=== PATIENT | female | born 1945 | race Caucasian/White ===

== ENCOUNTER → 2023-10-30 12:51 | Outpatient (REF) | payer OTHER, SELFPAY | LOC: WDC 12:51 | PROVIDERS: ATTENDING PHYSICIAN Internal Medicine | DX: Z12.31 Encounter for screening mammogram for malignant neoplasm of breast (principal) | CPT/HCPCS: 77063; 77067 ==

== ENCOUNTER → 2024-06-22 10:09 | Outpatient (REF) | payer OTHER, SELFPAY ==
[2024-06-22 12:00] LABS: Urine Albumin Negative (Neg - Trace); Urine Bilirubin Negative (Negative); Urine Character Clear (Clear); Urine Color Yellow; Urine Glucose Negative (Negative); Urine Ketone Negative (Negative); Urine Leukocyte 1+ (Negative); Urine Nitrite Negative (Negative); Urine Occult Blood Negative (Negative); Urine Specific Gravity 1.015 (<1.030); Urine Urobilinogen Negative (Neg - 1+)
[2024-06-22 12:21] LABS: Urine Red Blood Cell 0-2 /HPF (0-2)
[2024-06-22 12:22] LABS: Urine Bacteria Many (Negative); Urine White Cell 50-60 /HPF (0-5)
[2024-06-22 12:58] LABS: ALT (SGPT) 23 U/L (0-35); AST (SGOT) 26 U/L (14-36); Albumin 4.1 g/dl (3.5-5.0); Alkaline Phosphatase 94 U/L (38-126); Blood Urea Nitrogen 17 mg/dl (7-17); Calcium 9.1 mg/dl (8.4-10.2); Carbon Dioxide 23 mmol/L (22-30); Chloride 104 mmol/L (98-107); Glucose 81 mg/dl (70-99); HDL Cholesterol 65 mg/dl; LDL Cholesterol, Calculated 126 mg/dl; Potassium 4.7 mmol/L (3.5-5.1); Sodium 143 mmol/L (135-145); Total Bilirubin 0.6 mg/dl (0.2-1.3); Total Cholesterol 219 mg/dl (50-199); Total Protein 6.7 g/dl (6.3-8.2); Triglyceride 140 mg/dl (10-149); Very Low Density Lipoprotein 28 mg/dl (0-30); eGFR > 60.00
[2024-06-22 14:15] LABS: % Basophils 0.5 % (0-2); % Eosinophils 1.4 % (0-6); % Immature Granulocytes 0.8 % (0-0.5); % Monocytes 7.5 % (1.7-9.3); % Neutrophils 67.8 % (42.2-75.2); Absolute Eosinophils 0.1 10^3/uL (0-0.7); Absolute Immature Granulocytes 0.1 10^3/uL (0-0.05); Absolute Lymphocytes 1.9 10^3/uL (1.2-3.4); Absolute Monocytes 0.7 10^3/uL (0.1-0.6); Absolute Neutrophils 5.9 10^3/uL (1.4-6.5); Hemoglobin 15.8 g/dL (12.0-16.0); Mean Corp Hgb Conc. 33.6 g/dL (33.0-37.0); Mean Corpuscular Hgb 28.6 pg (27.0-31.0); Mean Corpuscular Volume 85.1 fL (81.0-99.0); Mean Platelet Volume 10.4 fL (7.4-10.4); Nucleated Red Blood Cells % 0 %; Platelet Count 295 10^3/uL (130-400); Red Blood Cell Count 5.52 10^6/uL (4.20-5.40); White Blood Cell Count 8.7 10^3/uL (4.8-10.8)
[2024-06-22 15:15] LABS: Cortisol, Random 5.4 ug/dl
[2024-06-22 15:41] LABS: Vitamin D, 25-OH*** 44.2 ng/mL (30-80)
[2024-06-22 15:55] LABS: TSH Reflex To Free T4 1.75 uIU/ml (0.47-4.68)
[2024-06-24 00:11] LABS: C-Peptide 3.3 ng/mL (0.5-3.3); Insulin, Random 19 uIU/mL
[2024-06-24 02:32] LABS: IGF-1 Z Score Calculation 1.5; Insulin-like Growth Factor I 178 ng/mL (18-200)
== END ==
LOC: OLABPV 10:09
PROVIDERS: ATTENDING PHYSICIAN Internal Medicine Geriatric Medicine; FAMILY PHYSICIAN Nurse Practitioner Family
DX: Z76.89 Persons encountering health services in other specified circumstances (principal); M54.41 Lumbago with sciatica, right side; R00.2 Palpitations; K21.9 Gastro-esophageal reflux disease without esophagitis; N39.0 Urinary tract infection, site not specified; I10 Essential (primary) hypertension; R05.3 Chronic cough; Z01.89 Encounter for other specified special examinations; Z13.89 Encounter for screening for other disorder
CPT/HCPCS: 36415; 80053; 80061; 81003; 81015; 82306; 82533; 83525; 84305; 84443; 84681; 85025; 87077; 87086; 87186

== ENCOUNTER → 2024-07-07 18:25 | Outpatient (REF) | payer OTHER, SELFPAY ==
[2024-07-07 19:35] LABS: Urine Albumin Negative (Neg - Trace); Urine Bilirubin Negative (Negative); Urine Character Clear (Clear); Urine Color Yellow; Urine Glucose Negative (Negative); Urine Ketone Negative (Negative); Urine Leukocyte Trace (Negative); Urine Nitrite Positive (Negative); Urine Occult Blood Negative (Negative); Urine Urobilinogen Negative (Neg - 1+)
[2024-07-07 19:43] LABS: Urine Bacteria Many (Negative); Urine Red Blood Cell 0-2 /HPF (0-2); Urine Squamous Cell 0-2 /LPF (Few); Urine White Cell 26-30 /HPF (0-5)
== END ==
LOC: OLABPV 18:25
PROVIDERS: ATTENDING PHYSICIAN Internal Medicine Geriatric Medicine
DX: N39.0 Urinary tract infection, site not specified (principal)
CPT/HCPCS: 36415; 81003; 81015; 87077; 87086

== ENCOUNTER → 2024-08-02 11:40 | Outpatient (REF) | payer OTHER, SELFPAY ==
[2024-08-02 16:36] LABS: Urine Albumin Negative (Neg - Trace); Urine Bilirubin Negative (Negative); Urine Character Clear (Clear); Urine Color Yellow; Urine Glucose Negative (Negative); Urine Ketone Negative (Negative); Urine Leukocyte Negative (Negative); Urine Nitrite Negative (Negative); Urine Occult Blood Negative (Negative); Urine Specific Gravity 1.015 (<1.030); Urine Urobilinogen Negative (Neg - 1+)
== END ==
LOC: OLABPV 11:40
PROVIDERS: ATTENDING PHYSICIAN Nurse Practitioner Family
DX: N39.0 Urinary tract infection, site not specified (principal)
CPT/HCPCS: 81003

== ENCOUNTER → 2024-08-03 10:23 | Outpatient (REF) | payer OTHER, SELFPAY ==
[2024-08-03 11:25] LABS: ALT (SGPT) 23 U/L (0-35); AST (SGOT) 25 U/L (14-36); Albumin 4.1 g/dl (3.5-5.0); Alkaline Phosphatase 83 U/L (38-126); Blood Urea Nitrogen 15 mg/dl (7-17); Carbon Dioxide 25 mmol/L (22-30); Chloride 105 mmol/L (98-107); Glucose 94 mg/dl (70-99); Potassium 4.6 mmol/L (3.5-5.1); Sodium 143 mmol/L (135-145); Total Bilirubin 0.7 mg/dl (0.2-1.3); Total Protein 6.8 g/dl (6.3-8.2); eGFR > 60.00
[2024-08-05 06:09] LABS: Insulin, Random 15 uIU/mL
[2024-08-05 06:10] LABS: C-Peptide 3.2 ng/mL (0.5-3.3)
[2024-08-05 16:30] LABS: IGF-1 Z Score Calculation 1.5; Insulin-like Growth Factor I 177 ng/mL (18-193)
== END ==
LOC: OLABPV 10:23
PROVIDERS: ATTENDING PHYSICIAN Internal Medicine Geriatric Medicine
DX: Z76.89 Persons encountering health services in other specified circumstances (principal); R26.9 Unspecified abnormalities of gait and mobility; I10 Essential (primary) hypertension; K21.9 Gastro-esophageal reflux disease without esophagitis; E55.9 Vitamin D deficiency, unspecified; E16.2 Hypoglycemia, unspecified
CPT/HCPCS: 36415; 80053; 82533; 83525; 84305; 84681

== ENCOUNTER → 2024-08-09 13:01 | Outpatient (REF) | payer OTHER, SELFPAY | LOC: RCS 13:01 | PROVIDERS: ATTENDING PHYSICIAN Nurse Practitioner Family | DX: R00.2 Palpitations (principal) | CPT/HCPCS: 93005 ==

== ENCOUNTER → 2024-08-11 13:21 | Outpatient (REF) | payer OTHER, SELFPAY | LOC: RCS 13:21 | PROVIDERS: ATTENDING PHYSICIAN Nurse Practitioner Family; FAMILY PHYSICIAN Internal Medicine Geriatric Medicine | DX: R94.31 Abnormal electrocardiogram [ECG] [EKG] (principal) | CPT/HCPCS: 93005 ==

== ENCOUNTER → 2024-08-16 13:08 | Outpatient (REF) | payer OTHER, SELFPAY | LOC: RCS 13:08 | PROVIDERS: ATTENDING PHYSICIAN Nurse Practitioner Family | DX: R94.31 Abnormal electrocardiogram [ECG] [EKG] (principal) | CPT/HCPCS: 93225; 93226 ==

== ENCOUNTER → 2024-08-19 11:17 | Outpatient (REF) | payer OTHER, SELFPAY | LOC: HWRAD 11:17 | PROVIDERS: ATTENDING PHYSICIAN Internal Medicine Geriatric Medicine | DX: N39.0 Urinary tract infection, site not specified (principal) | CPT/HCPCS: 76770 ==

== ENCOUNTER → 2024-08-28 11:19 | Outpatient (REF) | payer OTHER, SELFPAY | LOC: RCS 11:19 | PROVIDERS: ATTENDING PHYSICIAN Nurse Practitioner Family; FAMILY PHYSICIAN Internal Medicine Geriatric Medicine | DX: R94.31 Abnormal electrocardiogram [ECG] [EKG] (principal) | CPT/HCPCS: 93306 ==

== ENCOUNTER → 2024-10-06 09:10 | Outpatient (REF) | payer OTHER, SELFPAY | LOC: RCS 09:10 | PROVIDERS: ATTENDING PHYSICIAN Internal Medicine Geriatric Medicine | DX: K21.9 Gastro-esophageal reflux disease without esophagitis (principal); I10 Essential (primary) hypertension; R26.9 Unspecified abnormalities of gait and mobility; E55.9 Vitamin D deficiency, unspecified; M25.562 Pain in left knee; M76.32 Iliotibial band syndrome, left leg; R00.2 Palpitations; R94.31 Abnormal electrocardiogram [ECG] [EKG]; Z13.89 Encounter for screening for other disorder; R61 Generalized hyperhidrosis; I49.1 Atrial premature depolarization | CPT/HCPCS: 93017; 93350 ==

== ENCOUNTER → 2024-11-05 08:00 | Outpatient (REF) | payer OTHER, SELFPAY | LOC: HWRCS 08:00 | PROVIDERS: ATTENDING PHYSICIAN Internal Medicine; FAMILY PHYSICIAN Internal Medicine Geriatric Medicine | DX: R00.2 Palpitations (principal); R06.09 Other forms of dyspnea; I49.1 Atrial premature depolarization; I47.10 Supraventricular tachycardia, unspecified; R94.39 Abnormal result of other cardiovascular function study | CPT/HCPCS: 78452; 93017; A9500; J2785 ==

== ENCOUNTER → 2024-11-23 14:13 | Outpatient (REF) | payer OTHER, SELFPAY | LOC: WDC 14:13 | PROVIDERS: ATTENDING PHYSICIAN Internal Medicine Geriatric Medicine | DX: Z12.31 Encounter for screening mammogram for malignant neoplasm of breast (principal) | CPT/HCPCS: 77063; 77067 ==

== ENCOUNTER 2024-11-26 10:31 | Day surgery (SDC) | payer OTHER, SELFPAY ==
[2024-11-19 10:32] VITALS: BMI 36.7
[2024-11-26] VITALS (8 sets, daily range): BP systolic 136–166; BP diastolic 72–112
--- NOTE | 2024-11-26 14:59 | W.PN.UPDATE ---
Update Note
Progress Note Update
CTSP re: fall. She was in the bathroom and had difficulty standing up from the toilet, lost her balance and fell backward, per pt. No witnesses. She struggled to get up and did. She now has lateral right side torso pain on palpation, skin is
reddened but no bruising or lacerations, skin is intact. She is able to take deep breaths without pain and moves in the bed without pain. She denies hitting her head at all, denies lh/dizziness/chest pain/palps/dypsnea.
Will get rib films with PA chest
Dr. Mitchell aware.
--- NOTE | 2024-11-26 16:21 | FALL ---
Description of Fall:Pt ambulated with RN without difficulty to bathroom from the stretcher in room at 1455. pt sitting on toilet , pt given privacy and RN told pt she would be right back. Pt got up off toilet and stated she had difficulty getting up
and fell to the back of toilet sitting on toilet. Pt was already back in the stretcher sitting up when RN returned to room approximately 2 minutes later from getting warm blankets. Pt stating she fell to the back of the toilet and hit her right
lower back. Pt denied hitting anything else.
Injuries Noted:reddended area noted on right lower back
Action Taken:Dr Mitchell and Nadine Mesa aware and in to see patient. Pt taken to xray as ordered. Ice offered to pt on return from xray and pain medicine. Pt denied any pain on return from xray. Right low back pain initially was 6/10 pt pain free
after returning from xray. Family at bedside and updated by Dr Mitchell and RN
Name of Provider Notified: Nadine Mesa FERMENTER WINE, Dr Kendal Mitchell
--- NOTE | 2024-11-26 19:35 | ITS.CL.PN ---
Counter Person - Procedure Note
Procedure
Procedure Note:
CARDIAC CATHETERIZATION REPORT
Date of Procedure: 11/26/2024
Referring: Dr. Ankit Green MD, PhD
Indication: atypical angina, positive cardiac stress test
PROCEDURE(S)
1. left heart catheterization
2. coronary angiography
ACCESS: 6F right radial artery (closure: radial band)
CATHETERS
1. 6F JR4
2. 6F JL3.5
MODERATE SEDATION: 25 minutes of moderate sedation was utilized. An independent medical legal investigator was present to assist with and help manage the patient's level of consciousness and physiologic status.
ULTRASOUND GUIDED VASCULAR ACCESS (right radial artery): Ultrasound was utilized for vascular access. The vessel was visualized under ultrasound and noted to be patent. An image of the vessel was stored permanently in the patient's medical record.
Under direct ultrasound guidance, vascular access was obtained using a modified Seldinger technique and a 6 Urdu sheath was placed.
HEMODYNAMIC DATA
LV 154/13 (EDP 20) mmHg
AO 149/87 (mean 115) mmHg
CORONARY ANGIOGRAPHY
Dominance: Right
LM: Large, normal
LAD: Large vessel giving rise to a small D1 and moderate caliber D2. There are trivial luminal irregularities.
LCx: Large vessel giving rise to a moderate caliber OM1 and small OM 2. There are trivial luminal irregularities
RCA: Large vessel giving rise to a moderate caliber RPDA and large LPL system with multiple branches. There are trivial luminal irregularities.
RADIATION: dose 300 mGy; DAP 20.8 Gy*cm2; fluoroscopy time 7.7 min
CONCLUSIONS
1. normal coronary arteries and a right dominant system
2. mildly elevated LV filling pressure and no aortic stenosis
RECOMMENDATIONS
1. expectant management after cardiac catheterization via right radial approach
2. primary prevention of coronary artery disease
3. workup and treatment possible ANOCA
Copy to: Dr. Ankit Green MD, PhD (cotton ball machine tender); Dr. James Phillips MD (PCP)
Signed: Mitchell Mitchell MD, PhD
== END 2024-11-26 17:45 | disposition home or self-care (01) ==
LOC: CATH 10:31
PROVIDERS: ATTENDING PHYSICIAN Internal Medicine Cardiovascular Disease; FAMILY PHYSICIAN Internal Medicine Geriatric Medicine; OTHER PHYSICIAN Internal Medicine
DX: R06.09 Other forms of dyspnea (principal); R94.39 Abnormal result of other cardiovascular function study; I10 Essential (primary) hypertension; E66.9 Obesity, unspecified; Z68.36 Body mass index [BMI] 36.0-36.9, adult; M19.90 Unspecified osteoarthritis, unspecified site; G47.33 Obstructive sleep apnea (adult) (pediatric); K21.9 Gastro-esophageal reflux disease without esophagitis; F32.A Depression, unspecified; Z79.82 Long term (current) use of aspirin; Z82.3 Family history of stroke
CPT/HCPCS: 99152; 99153; C1894; 36415; 71101; 76937; 80053; 85025; 93005; 93458; Q9967

== ENCOUNTER → 2024-11-30 13:00 | Outpatient (REF) | payer OTHER, SELFPAY ==
[2024-11-30 17:09] LABS: Urine Albumin 2+ (Neg - Trace); Urine Bilirubin Negative (Negative); Urine Character Cloudy (Clear); Urine Color Yellow; Urine Glucose Negative (Negative); Urine Ketone Negative (Negative); Urine Leukocyte 3+ (Negative); Urine Nitrite Positive (Negative); Urine Occult Blood 3+ (Negative); Urine Specific Gravity 1.015 (<1.030); Urine Urobilinogen Negative (Neg - 1+)
[2024-11-30 17:50] LABS: Urine White Cell >100 /HPF (0-5)
[2024-11-30 17:51] LABS: Urine Amorphous Seen; Urine Bacteria Many (Negative)
== END ==
LOC: OLABPV 13:00
PROVIDERS: ATTENDING PHYSICIAN Internal Medicine Geriatric Medicine
DX: R39.15 Urgency of urination (principal); R35.0 Frequency of micturition; R50.9 Fever, unspecified
CPT/HCPCS: 81003; 81015; 87077; 87086; 87088; 87186

== ENCOUNTER → 2025-01-07 10:25 | Outpatient (REF) | payer OTHER, SELFPAY ==
[2025-01-07 11:47] LABS: % Basophils 0.6 % (0-2); % Eosinophils 1.8 % (0-6); % Immature Granulocytes 0.6 % (0-0.5); % Lymphocytes 20.2 % (20.5-51.1); % Monocytes 7.2 % (1.7-9.3); % Neutrophils 69.6 % (42.2-75.2); Absolute Basophils 0.1 10^3/uL (0-0.2); Absolute Eosinophils 0.2 10^3/uL (0-0.7); Absolute Immature Granulocytes 0.1 10^3/uL (0-0.05); Absolute Lymphocytes 1.9 10^3/uL (1.2-3.4); Absolute Monocytes 0.7 10^3/uL (0.1-0.6); Absolute Neutrophils 6.5 10^3/uL (1.4-6.5); Hematocrit 46.4 % (37.0-47.0); Hemoglobin 15.3 g/dL (12.0-16.0); Mean Platelet Volume 10.2 fL (7.4-10.4); Nucleated Red Blood Cells % 0 %; Platelet Count 250 10^3/uL (130-400); Red Blood Cell Count 5.27 10^6/uL (4.20-5.40); Red Cell Dist. Width 14.9 % (11.5-14.5); White Blood Cell Count 9.4 10^3/uL (4.8-10.8)
[2025-01-07 12:02] LABS: ALT (SGPT) 21 U/L (0-35); AST (SGOT) 22 U/L (14-36); Albumin 3.6 g/dl (3.5-5.0); Alkaline Phosphatase 82 U/L (38-126); Blood Urea Nitrogen 22 mg/dl (7-17); Calcium 9.4 mg/dl (8.4-10.2); Carbon Dioxide 29 mmol/L (22-30); Chloride 108 mmol/L (98-107); Glucose 92 mg/dl (70-99); Potassium 4.7 mmol/L (3.5-5.1); Sodium 143 mmol/L (135-145); Total Bilirubin 0.8 mg/dl (0.2-1.3); Total Protein 6.3 g/dl (6.3-8.2); eGFR > 60.00
[2025-01-07 12:24] LABS: TSH 1.58 uIU/ml (0.47-4.68)
[2025-01-07 12:46] LABS: Hepatitis C Antibody Negative (Negative)
[2025-01-07 13:00] LABS: Folate 7.7 ng/ml (2.76-20); Vitamin B12 255 pg/ml (239-931)
[2025-01-09 08:12] LABS: ANA, IgG Reflex to HEp-2 Detected (None Detected)
== END ==
LOC: OLABPV 10:25
PROVIDERS: ATTENDING PHYSICIAN Internal Medicine Geriatric Medicine
DX: R26.9 Unspecified abnormalities of gait and mobility (principal); K21.9 Gastro-esophageal reflux disease without esophagitis; E78.2 Mixed hyperlipidemia; I10 Essential (primary) hypertension; E55.9 Vitamin D deficiency, unspecified; M25.562 Pain in left knee; M76.32 Iliotibial band syndrome, left leg; R00.2 Palpitations; I49.1 Atrial premature depolarization; Z13.89 Encounter for screening for other disorder; G62.9 Polyneuropathy, unspecified; G60.3 Idiopathic progressive neuropathy
CPT/HCPCS: 36415; 80053; 82306; 82607; 82746; 84155; 84165; 84207; 84425; 84443; 85025; 86038; 86618; 86803

== ENCOUNTER → 2025-01-12 13:50 | Outpatient (REF) | payer OTHER, SELFPAY | LOC: RAD 13:50 | PROVIDERS: ATTENDING PHYSICIAN Internal Medicine Geriatric Medicine | DX: R26.9 Unspecified abnormalities of gait and mobility (principal); K21.9 Gastro-esophageal reflux disease without esophagitis; E78.2 Mixed hyperlipidemia; I10 Essential (primary) hypertension; E55.9 Vitamin D deficiency, unspecified; M25.562 Pain in left knee; M76.32 Iliotibial band syndrome, left leg; R00.2 Palpitations; I49.1 Atrial premature depolarization; Z13.89 Encounter for screening for other disorder; G62.9 Polyneuropathy, unspecified; G60.3 Idiopathic progressive neuropathy | CPT/HCPCS: 72052 ==

== ENCOUNTER 2025-01-28 06:16 | Day surgery (SDC) | payer OTHER, SELFPAY | END 2025-01-28 10:19 | disposition home or self-care (01) | LOC: GI 06:16 | PROVIDERS: ATTENDING PHYSICIAN Internal Medicine Gastroenterology | DX: R12 Heartburn (principal); K22.89 Other specified disease of esophagus; K31.89 Other diseases of stomach and duodenum; K22.70 Barrett's esophagus without dysplasia | CPT/HCPCS: 43239; 88305; 88342 ==

== ENCOUNTER → 2025-03-08 10:44 | Outpatient (REF) | payer OTHER, SELFPAY ==
[2025-03-08 11:28] LABS: ALT (SGPT) 18 U/L (0-35); AST (SGOT) 20 U/L (14-36); Alkaline Phosphatase 85 U/L (38-126); Blood Urea Nitrogen 20 mg/dl (7-17); Calcium 9.2 mg/dl (8.4-10.2); Carbon Dioxide 27 mmol/L (22-30); Chloride 107 mmol/L (98-107); Glucose 90 mg/dl (70-99); Potassium 4.5 mmol/L (3.5-5.1); Sodium 140 mmol/L (135-145); Total Bilirubin 0.6 mg/dl (0.2-1.3); Total Protein 6.7 g/dl (6.3-8.2); eGFR > 60.00
[2025-03-08 11:40] LABS: % Basophils 0.5 % (0-2); % Eosinophils 1.7 % (0-6); % Immature Granulocytes 0.4 % (0-0.5); % Lymphocytes 16.1 % (20.5-51.1); % Neutrophils 74.3 % (42.2-75.2); Absolute Basophils 0.1 10^3/uL (0-0.2); Absolute Eosinophils 0.2 10^3/uL (0-0.7); Absolute Lymphocytes 1.6 10^3/uL (1.2-3.4); Absolute Monocytes 0.7 10^3/uL (0.1-0.6); Absolute Neutrophils 7.5 10^3/uL (1.4-6.5); Hematocrit 46.8 % (37.0-47.0); Hemoglobin 15.8 g/dL (12.0-16.0); Mean Corp Hgb Conc. 33.8 g/dL (33.0-37.0); Mean Corpuscular Volume 85.9 fL (81.0-99.0); Mean Platelet Volume 10.5 fL (7.4-10.4); Nucleated Red Blood Cells % 0 %; Platelet Count 250 10^3/uL (130-400); Red Blood Cell Count 5.45 10^6/uL (4.20-5.40); Red Cell Dist. Width 14.2 % (11.5-14.5); White Blood Cell Count 10.1 10^3/uL (4.8-10.8)
[2025-03-08 12:08] LABS: Erythrocyte Sed Rate 9 mm/hour (0-20)
[2025-03-09 23:29] LABS: Complement C3 135 mg/dl (88-165)
[2025-03-10 08:02] LABS: Smith/RNP (ENA), IgG 18 Units (0-19)
[2025-03-10 08:11] LABS: SSA 52 (Ro)(ENA) Ab, IgG 6 AU/mL (0-40); SSA 60 (Ro)(ENA) Ab, IgG 1 AU/mL (0-40); SSB (La)(ENA) Ab, IgG 0 AU/mL (0-40); Smith (ENA) Antibody, IgG 11 AU/mL (0-40)
[2025-03-10 10:21] LABS: ANA, IgG Reflex to HEp-2 Detected (None Detected)
[2025-03-11 00:15] LABS: ds-DNA Ab, IgG Reflex To Titer 37 IU (0-24)
== END ==
LOC: OLABPV 10:44
PROVIDERS: ATTENDING PHYSICIAN Internal Medicine Rheumatology
DX: M25.50 Pain in unspecified joint (principal); M54.31 Sciatica, right side; M54.32 Sciatica, left side; R76.8 Other specified abnormal immunological findings in serum
CPT/HCPCS: 36415; 80053; 85025; 85652; 86038; 86140; 86160; 86225; 86235

== ENCOUNTER → 2025-03-16 11:04 | Outpatient (REF) | payer OTHER, SELFPAY ==
[2025-03-18 20:06] LABS: Thyroglobulin Antibodies <1.5 IU/mL (0.0-4.0); Thyroid Peroxidase Ab (TPO) 0.6 IU/mL (0.0-9.0)
== END ==
LOC: OLABPV 11:04
PROVIDERS: ATTENDING PHYSICIAN Internal Medicine Rheumatology; FAMILY PHYSICIAN Internal Medicine Geriatric Medicine
DX: R76.8 Other specified abnormal immunological findings in serum (principal); E06.9 Thyroiditis, unspecified; M25.50 Pain in unspecified joint; R29.890 Loss of height; M54.31 Sciatica, right side; M54.50 Low back pain, unspecified
CPT/HCPCS: 36415; 72072; 72110; 86376; 86800

== ENCOUNTER → 2025-04-12 12:13 | Outpatient (REF) | payer OTHER, SELFPAY ==
[2025-04-12 13:00] LABS: Urine Character Cloudy (Clear)
[2025-04-12 13:47] LABS: Urine Squamous Cell 16-20 /LPF (Few)
== END ==
LOC: OLABPV 12:13
PROVIDERS: ATTENDING PHYSICIAN Internal Medicine Geriatric Medicine
DX: R35.0 Frequency of micturition (principal)
CPT/HCPCS: 81003; 81015; 87077; 87086; 87186

== ENCOUNTER → 2025-04-19 09:42 | Outpatient (REF) | payer OTHER, SELFPAY | LOC: RAD 09:42 | PROVIDERS: ATTENDING PHYSICIAN Internal Medicine Rheumatology; FAMILY PHYSICIAN Internal Medicine Geriatric Medicine | DX: Z13.820 Encounter for screening for osteoporosis (principal) | CPT/HCPCS: 77080 ==

== ENCOUNTER → 2025-07-07 13:29 | Outpatient (REF) | payer OTHER, SELFPAY | LOC: RAD 13:29 | PROVIDERS: ATTENDING PHYSICIAN Nurse Practitioner Adult Health; FAMILY PHYSICIAN Internal Medicine Geriatric Medicine | DX: N95.0 Postmenopausal bleeding (principal) | CPT/HCPCS: 76830; 76856 ==

== ENCOUNTER → 2025-07-25 09:48 | Outpatient (REF) | payer OTHER, SELFPAY ==
[2025-07-27 18:06] LABS: 24 Hour Urine Total Volume 1800 mL; 5HIAA, 24 Hour Urine 4 mg/d (0-15); 5HIAA, Urine 2.0 mg/L; 5HIAA/Creatinine Ratio 4 mg/gCR (0-14); Creatinine, Urine 24 Hour 936 mg/d (400-1300); Creatinine, Urine per Volume 52 mg/dL; Urine Collection Length 24 hr
== END ==
LOC: REG 09:48
PROVIDERS: ATTENDING PHYSICIAN Internal Medicine Geriatric Medicine
DX: R61 Generalized hyperhidrosis (principal)
CPT/HCPCS: 81050; 83497

== ENCOUNTER → 2025-08-31 13:47 | Outpatient (REF) | payer OTHER, SELFPAY | LOC: RAD 13:47 | PROVIDERS: ATTENDING PHYSICIAN Internal Medicine Geriatric Medicine | DX: R10.85 Abdominal pain of multiple sites (principal) | CPT/HCPCS: 76700 ==

== ENCOUNTER 2025-09-01 18:10 | Day surgery (SDC) | payer OTHER, SELFPAY ==
[2025-09-01 09:58] VITALS: BP 161/98
--- NOTE | 2025-09-01 10:40 | ED.GENMED ---
History of Present Illness
General
Chief Complaint: Abdominal Pain
Source: patient
Exam Limitations: none
Time Seen by Provider: 09/01/25 10:27
History of Present Illness
History of Present Illness:
See MDM
Past History
Past History
ED Past Medical History: Arrthythmia, HTN, Psychiatric and Other (OA, ENRIQUE)
Social History
Tobacco: Non-smoker
Alcohol: None
Phy Exam
Physical Exam
Physical Exam:
See MDM
Course
Orders/Labs/Results
Orders:
Orders
09/01/25 10:39
Morphine Sulfate 4 mg IV NOW STA
Ondansetron Injectable [Zofran] 4 mg IV NOW STA
09/01/25 10:40
Electrocardiogram (*1) Urgent
Reason for Study: PreOp
EKG- Treatment ONCE
09/01/25 10:55
Type+Screen Urgent
Complete Blood Count/With Diff Urgent
Comprehensive Metabolic Panel Urgent
Lipase Urgent
Comment: ADD ON
PTT Urgent
Prothrombin Time Urgent
09/01/25 12:09
Add On- LAB Urgent
Tests Added?: lipase
Abnormal Lab Results
09/01/25
10:55
RBC 5.55 H 10^6/uL
(4.20-5.40)
Hgb 16.1 H g/dL
(12.0-16.0)
Hct 49.4 H %
(37.0-47.0)
MCHC 32.6 L g/dL
(33.0-37.0)
Abs Immat Gran (auto) 0.1 H 10^3/uL
(0-0.05)
Absolute Neuts (auto) 7.6 H 10^3/uL
(1.4-6.5)
Absolute Monos (auto) 0.7 H 10^3/uL
(0.1-0.6)
Immature Gran % 0.6 H %
(0-0.5)
Lymphocytes % 15.4 L %
(20.5-51.1)
Carbon Dioxide 31 H mmol/L
(22-30)
BUN 18 H mg/dl
(7-17)
09/01/25 10:55
09/01/25 10:55
Vital Signs
Initial and Last Documented VS:
Initial Vital Signs
Temp Pulse Resp BP Pulse Ox
98.0 F 77 16 161/98 98
09/01/25 09:58 09/01/25 09:58 09/01/25 09:58 09/01/25 09:58 09/01/25 09:58
Last Documented Vital Signs
Temp Pulse Resp BP Pulse Ox
98.0 F 77 16 161/98 98
09/01/25 09:58 09/01/25 09:58 09/01/25 09:58 09/01/25 09:58 09/01/25 10:42
MDM/Problems Addressed
Differential Diagnosis Includes:
Note:
CHIEF COMPLAINT(S)
Abdominal pain and nausea.
HISTORY OF PRESENT ILLNESS
The patient is an 80-year-old female with a history of gallstones, presenting with abdominal pain and nausea. She experiences low-grade fevers occasionally, and her symptoms worsen after eating certain foods. Her discomfort increased significantly
following an ultrasound the previous day, which revealed a high number of gallstones and potential fluid around the gallbladder suggesting possible inflammation or infection. On examination, she reports pain upon palpation and describes the pain as
aggravated by fatty meals. Her symptoms include persistent nausea and abdominal pain.
PHYSICAL EXAM
General: Alert, no acute distress.
Skin: Warm, dry.
Head: Normocephalic, atraumatic
Neck: Appears supple, trachea midline.
Eyes, Ears, Nose, Mouth, and Throat: Moist mucous membranes
Cardiovascular: No signs of cyanosis
Respiratory: Respirations are non-labored.
Abdomen: Non-distended. Point tenderness to right upper quadrant without rebound
Musculoskeletal: No deformities
Neurological: No focal neurological deficit observed.
Psychiatric: Cooperative, appropriate mood and affect.
PLAN
- Order blood tests to evaluate liver enzymes.
- Manage symptoms with medications: ondansetron (Zofran) for nausea and morphine for pain.
- Consult with a surgeon for potential gallbladder removal.
DIFFERENTIAL DIAGNOSIS
The Differential Diagnosis includes, in no particular order and is not limited to:
- Symptomatic cholelithiasis
- Acute cholecystitis
- Biliary colic
- Peptic ulcer disease
- Gastroesophageal reflux disease (GERD)
- Pancreatitis
- Hepatitis
- Gallbladder empyema
- Biliary dyskinesia
- Gastroenteritis
SUMMARY OF ENCOUNTER
The patient was seen in the emergency department for evaluation and management of abdominal pain and nausea, which were determined likely due to gallstones and potential inflammation or infection of the gallbladder. Based on her clinical
presentation and ultrasound findings, a blood workup and symptom management were initiated in preparation for a surgical consult.
DISPOSITION
Admit for observation and surgical consultation.
EMERGENCY TREATMENTS ADMINISTERED
- Ondansetron (Zofran) for nausea.
- Morphine for pain management.
MEDICAL DECISION MAKING
Number and Complexity of Problems Addressed: Chronic conditions affecting care: Gallstones. Differential Diagnosis includes:
- Symptomatic cholelithiasis
- Acute cholecystitis
- Biliary colic
- Peptic ulcer disease
- Gastroesophageal reflux disease (GERD)
- Pancreatitis
- Hepatitis
- Gallbladder empyema
- Biliary dyskinesia
- Gastroenteritis
Data:
Category 1: Tests and documents
- Blood tests for liver enzymes ordered.
- Ultrasound reviewed indicating multiple gallstones and potential fluid around the gallbladder.
Category 3:
- Plan discussed with the patient including the potential need for gallbladder removal pending surgical consultation.
Risk:
Prescription medication was prescribed for nausea and pain management. Consideration of Admission/Observation: Escalation of care including admission/observation was considered given the complexity and risk of the patients presenting complaint, exam
findings, and/or her underlying comorbidities. However, ultimately I feel the patient is safe for admission for further surgical evaluation.
DIAGNOSIS
- Acute cholecystitis, ICD-10: K81.0
- Nausea and vomiting, ICD-10: R11.2
EKG
My independent EKG interpretation is:
- Rhythm: Normal sinus rhythm
- Heart Rate: 65 beats per minute
- [place]: Normal axis
- Intervals: Within normal limits
- ST Segment: No ST elevation
SUMMARY OF ENCOUNTER
The patient, an 80-year-old female, was seen in the emergency department for abdominal pain and nausea, following concerning ultrasound findings suggestive of acute calculous cholecystitis. She exhibited mild right upper quadrant pain during exam.
Abdominal ultrasound indicated numerous gallstones and potential gallbladder inflammation or infection. Her blood work showed no clinically relevant abnormalities. Given her age and ultrasound findings, a consultation with general surgery was
conducted, leading to a decision to admit her for observation and surgical intervention due to persistent pain.
DISPOSITION
Admit for observation and surgical intervention for acute cholecystitis.
MANAGEMENT OF THE PATIENTS CARE WAS DISCUSSED WITH
Discussion held with the general surgery team, who evaluated the patient and recommended admission for surgical management.
PLAN
The patient is planned for admission to manage suspected acute cholecystitis with antibiotics, followed by potential operative intervention.
MEDICAL DECISION MAKING
-Complexity of Data Reviewed: Chronic conditions affecting care include gallstones, with a differential diagnosis list including symptomatic cholelithiasis, acute cholecystitis, biliary colic, peptic ulcer disease, gastroesophageal reflux disease
(GERD), pancreatitis, hepatitis, gallbladder empyema, biliary dyskinesia, and gastroenteritis.
-Data:
Category 1:
- Ultrasound reviewed, showing multiple gallstones and potential fluid around the gallbladder.
Category 3:
- Discussion of management with the general surgery team resulting in a decision to admit for operative intervention.
DIAGNOSIS
- Acute cholecystitis, ICD-10: K81.0
*Pulse Oximetry
SaO2: 98
Oxygen Mode of Delivery: Room air
Patient hypoxic: no
*Critical Care Note
Total Time (30-74mins, 75-104mins- exclusive of procedures): Not Applicable
ED Attending Note
-
Portions of this chart may have been created with voice recognition software.� Occasional wrong word or��sound alike� substitutions may have occurred due to the inherent limitations of voice recognition software.
Discharge Plan
Departure
Patient Disposition: Admit
Date of Disposition: 09/01/25
Time of Disposition: 12:47
Admit to: Med/Surg
Presentation/result/management discussed w/ accepting MD/DO: General Surgeon
Discharge Problem:
Acute calculous cholecystitis
Prescriptions:
No Action
benzonatate 200 mg Capsule
200 mg PO BID PRN (Reason: cough)
metoprolol tartrate [Lopressor] 50 mg Tablet
50 mg PO BID
omeprazole 20 mg Capsule,Delayed Release(Dr/Ec)
20 mg PO DAILY
aspirin 81 mg Tablet,Chewable
81 mg PO DAILY
hydrochlorothiazide 25 mg Tablet
25 mg PO DAILY PRN (Reason: edema)
fluoxetine [Prozac] 20 mg Capsule
20 mg PO DAILY
olopatadine 0.6 % [place],Non-Aerosol
2 spray INTRANASAL DAILY
cholecalciferol (vitamin D3) [Vitamin D3] 50 mcg (2,000 unit) Tablet
50 mcg PO DAILY
potassium chloride 8 mEq Tablet Extended Release
8 meq PO DAILY
furosemide 20 mg Tablet
20 mg PO DAILY PRN (Reason: Reduction Of Transepidermal Water Loss)
arnica 20 % Tincture
TOPICAL
acetaminophen 500 mg Capsule
500 mg PO Q6H PRN (Reason: pain)
dicyclomine 10 mg Capsule
10 mg PO QID PRN (Reason: diarrhea)
Systane (PF) 0.4-0.3 % [place]
1 drp OPHTHALMIC (EYE) Q6H
Referrals:
James Phillips MD [Family Provider, Internal Medicine]
Interventions
Interventions:
*Risk Screen - Suicide Last Done: 09/01/25 09:58
*General Assessment Last Done: 09/01/25 09:58
*Neglect/Abuse Screening Last Done: 09/01/25 09:58
*ED COVID-19 Vaccine History Last Done: 09/01/25 09:58
*ED Influenza Vaccine History Last Done: 09/01/25 09:58
FA-Iaamah-Qtlxnrdqim Assessment Last Done: 09/01/25 11:14
Discharge Date and Time
Print Language: CAMBODIAN
[2025-09-01] MEDS: MORPHINE SULFATE 4 MG IV (10:59)
[2025-09-01] MEDS: ZOFRAN 4 MG IV ×2 (10:59→19:35)
[2025-09-01 11:10] LABS: Hematocrit 49.4 % (37.0-47.0); Hemoglobin 16.1 g/dL (12.0-16.0); Mean Corp Hgb Conc. 32.6 g/dL (33.0-37.0); Mean Corpuscular Volume 89.0 fL (81.0-99.0); Nucleated Red Blood Cells % 0 %; Platelet Count 261 10^3/uL (130-400); Red Cell Dist. Width 14.1 % (11.5-14.5)
[2025-09-01 11:17] LABS: INR 0.99; PT 12.9 Sec (11.4-14.6)
[2025-09-01 11:18] LABS: APTT 24.9 Sec (23.4-35.0)
[2025-09-01 11:26] LABS: ALT (SGPT) 22 U/L (0-35); AST (SGOT) 22 U/L (14-36); Albumin 4.2 g/dl (3.5-5.0); Alkaline Phosphatase 87 U/L (38-126); Blood Urea Nitrogen 18 mg/dl (7-17); Calcium 9.3 mg/dl (8.4-10.2); Carbon Dioxide 31 mmol/L (22-30); Chloride 102 mmol/L (98-107); Glucose 94 mg/dl (70-99); Potassium 4.7 mmol/L (3.5-5.1); Sodium 137 mmol/L (135-145); Total Protein 7.1 g/dl (6.3-8.2); eGFR > 60.00
[2025-09-01 12:39] LABS: Lipase 243 U/L (23-300)
[2025-09-01] MEDS: ZOSYN 50 IV ×3 (12:59→23:21)
[2025-09-01 14:18] VITALS: BMI 36.0
[2025-09-01] MEDS: NORMOSOL-R/PLASMALYTE-A 1000 IV (14:22)
[2025-09-01 16:25] LABS: Glucose - Point of Care 94 mg/dl (70-99)
[2025-09-01] MEDS: DILAUDID 0.5 MG IV (17:08)
[2025-09-01 18:00] VITALS: BP 173/99
[2025-09-01] MEDS: LOVENOX 40 MG SC (18:18)
--- NOTE | 2025-09-01 18:18 | HPS.HSE ---
Family Physician
-
Family Physician: James Phillips
Chief Complaint
-
Abdominal pain
History of Present Illness
Patient is a 80 yo F with a PMH of obesity, GERD, HTN, SVT, ENRIQUE, ENRIQUE (on CPAP), s/p bilateral TKA, s/p , and s/p open appendectomy who presents with abdominal discomfort for the past week. She has had intermittent attacks of discomfort
which prompted a outpatient ultrasound which showed numerous gallstones concerning for possible cholecystitis. These ultrasound findings and her persistent pain prompted presentation to the ER. Pain slightly worse with fatty food intake.
Low-grade fevers. Associated nausea, but no vomiting. Denies any jaundice, pale stools, or tea colored urine.
Medical History
Past Medical History
Past Medical History: Reports Arrhythmia (SVT), GERD, HTN and Other (Obesity, ENRIQUE)
Past Surgical History: Reports Appendectomy, and Orthopedic (Bl TKA)
Social History
Tobacco: Non-smoker
Alcohol: None
Drug: None
Family History
Family History: Not pertinent
Allergies / Home Medications
Allergies reflects when Allergies were last updated in [facility].
Home Medications with original date entered in [facility]
Allergy/Medication List:
NSAIDs, Sulfa, PCN
Review of Systems
-
A 12 point ROS was completed and negative except as noted: Yes
Physical Exam
Vital Signs
Vital Signs
Temp Pulse Resp BP Pulse Ox
98.0 F 77 16 161/98 98
09/01/25 09:58 09/01/25 09:58 09/01/25 09:58 09/01/25 09:58 09/01/25 10:42
Physical Exam
General: Well Developed and Well Nourished
Respiratory: Non Labored Respirations
Cardiac: Regular Rhythm
GI: Soft, Non Distended, Tender (RUQ, positive Ashton's sign) and Other (Obese, non-peritoneal)
Skin: Warm and Dry
Neuro: Nonfocal/grossly intact
Laboratory Results
-
09/01/25 10:55
09/01/25 10:55
Laboratory Results
PT 12.9 Sec (11.4-14.6) 09/01/25 10:55
INR 0.99 09/01/25 10:55
APTT 24.9 Sec (23.4-35.0) 09/01/25 10:55
Total Bilirubin 0.5 mg/dl (0.2-1.3) 09/01/25 10:55
AST 22 U/L (14-36) 09/01/25 10:55
ALT 22 U/L (0-35) 09/01/25 10:55
Alkaline Phosphatase 87 U/L (38-126) 09/01/25 10:55
Lipase Cancelled 09/01/25 12:08
Data Reviewed
-
Ultrasound: Image Personally Visualized and interpreted and Report Reviewed by me
Lab Data: Labs Reviewed by me
Old Records: Reviewed
Impression/Plan
-
IMPRESSION:
Patient is an 80 yo F p/w acute on chronic cholecystitis
The natural history and pathophysiology of biliary stone disease was discussed. Anatomy was reviewed. Workup thus far including labs and ultrasound were reviewed. Options for management including medical management with low-fat diet and
antibiotics versus surgical management with cholecystectomy were considered and discussed. The pros and cons of both approaches was discussed. Given her persistent symptoms recommend surgical intervention during this presentation.
Plan for a laparoscopic cholecystectomy with possible cholangiogram. The procedure itself, as well as risks, benefits, and alternatives was discussed. Specifically, we discussed the risks of bleeding, infection, injury to surrounding structures
(bowel, bile ducts), CBD injury, need for procedure. Typical postprocedure recovery including pain management, activity restrictions, and the 10 to 20% risk of fluctuations in GI function were discussed. All questions answered. Consent signed.
PLAN:
-- Admit to surgery
-- Laparoscopic cholecystectomy with IOC, timing pending OR availability
-- Clears, NPO PM
-- Abx: Zosyn
-- Home BB ordered
-- GI: PPI
-- DVT: Lovenox
[2025-09-01 18:19] VITALS: BMI 36.3
[2025-09-01] MEDS: TOPROL XL 50 MG PO (19:41)
[2025-09-01 23:00] VITALS: BP 147/76
[2025-09-01 23:15] VITALS: PULSE 71
--- NOTE | 2025-09-01 23:33 | W.PN.UPDATE ---
Update Note
Progress Note Update
patient refusing 650mg tylenol, and requesting 500 mg PO. Changed Tylenol to 500mg PO q4WA
[2025-09-01] MEDS: TYLENOL 500 MG PO (23:38)
[2025-09-02] VITALS (10 sets, daily range): BP systolic 138–171; BP diastolic 68–89
[2025-09-02] MEDS: NORMOSOL-R/PLASMALYTE-A 1000 IV (00:11)
[2025-09-02] MEDS: TYLENOL 500 MG PO ×4 (03:23→19:54)
[2025-09-02] MEDS: ZOSYN 50 IV ×3 (05:30→18:14)
[2025-09-02] MEDS: PROTONIX IV 40 MG IV (08:33)
[2025-09-02] MEDS: NSS (PRESERVATIVE FREE) 10 ML IV (08:34)
[2025-09-02] MEDS: TOPROL XL 50 MG PO ×2 (08:37→18:24)
[2025-09-02 09:42] LABS: CEA 0.97 ng/ml
--- NOTE | 2025-09-02 11:13 | CON.GI ---
Consultation
-
Date/Time Consultation Requested: 09/02/2025
Date/Time Consultation Performed: 09/02/2025
Requesting Provider: Dr Swanson
Performing Provider: Dr Mehta
Reason for Consultation: abnormal CT scan
Medical History
Chief Complaint / HPI
History of Present Illness:
Yomaira is an 79yo W with a history of� HTN, anxiety and ENRIQUE on CPAP , GERD with Morton's esophagus who was advised to come to ER by PMD for abnormal abd US.
She is known to be for h/o GERD with BE and IBS-D. She resides in independent living at [facility]� For the past 10 days with intermittent pain worse with meals. She was seen by Dr. Phillips and had abd US that showed gallstones. She was advised
to come to ER for surgical evaluation and was admitted for possible CYY on surgical service. However CTAP IV contrast done shows large 7cm pancreatic head mass with invasion of SMV with gallstones. There is no biliary dilation.
At the time of my inteview, her abd pain is now 1 out of 10 in nature. Denies nausea/vomiting. She is hungry. She has h/o reflux, heartburn and indigestion but controlled on omeprazole. She denies odynophagia, dysphagia, blood in stools or wt
loss. She is not on anticoagulants and no recent nsaid use.
Prior GI Workup
01/[address] Mehta irregular Zline bx neg for BE, neg for celiac or HP.
01/2022 EGD: Morton's 2cm in length, caren esophagitis, erythema of stomach.� Path records not available
09/2023 Colonoscopy: [facility] [place].� diverticulosis, spastic sigmoid, 3 polyps, 6mm in sigmoid removed the other 2 polyps 'undisturbed.'
09/2020 pH and impedeance manometry:� 48 events 34 acid, ? 3.6cm HH vs artifact.
Past Medical History
Past Medical History: Other (HTN, Anxiety, GERD, Frequent UTI, ENRIQUE on cpap, chronic cystitis, GERD Morton's hiatal hernia, diverticulitis)
Past Surgical History: Other (Bilateral TKA 2017, Csections, EGDs, breast bx, cystoscopy 2021 wisdom teeth extraction)
Social History
Tobacco: Non-Smoker
Drug: None
Personal:
Living: Other (Independent living at [facility])
Employment: Retired
Family History
Family History: Reviewed & Not Pertinent
Allergies / Home Medications
Allergy/AdvReac Type Severity Reaction Status Date / Time
ampicillin Allergy Unknown Verified 09/01/25 10:02
erythromycin base Allergy Unknown Verified 09/01/25 10:02
NSAIDS (Non-Steroidal Allergy Unknown Verified 09/01/25 10:02
Anti-Inflamma
Sulfa (Sulfonamide Allergy Unknown Verified 09/01/25 10:02
Antibiotics)
�Medication �Instructions �Recorded
cholecalciferol (vitamin D3) 50 50 mcg PO DAILY Supplement 11/18/24
mcg (2,000 unit) tablet (Vitamin
D3)
fluoxetine 20 mg capsule (Prozac) 20 mg PO DAILY Mental 11/18/24
Health/Anxiety
omeprazole 20 mg capsule,delayed 20 mg PO DAILY Gastrointestinal 11/18/24
release Issue
furosemide 20 mg tablet 20 mg PO DAILY Fluid 11/26/24
Retention/Swelling
potassium chloride 8 mEq 8 meq PO DAILY Electrolyte 11/26/24
tablet,extended release Repletion
carboxymethylcellulose sodium 0.5 1 drp BOTH EYES TIDPRN PRN dryness 09/01/25
% eye drops (Refresh Tears)
d-mannose 500 mg capsule 1,000 mg PO DAILY Urinary Issue 09/01/25
metaxalone 800 mg tablet 800 mg PO HSPRN PRN spasms 09/01/25
metoprolol succinate 50 mg 50 mg PO BID 09/01/25
tablet,extended release 24 hr
(Toprol XL)
ofloxacin 0.3 % ear drops 4 drp otic (ear) BID right ear 09/01/25
Review of Systems
-
All other systems: A 12 pt ROS was Negative except as stated above in HPI
Vital Signs
Temp Pulse Resp BP Pulse Ox
98.5 F 73 18 160/77 96
09/02/25 07:20 09/02/25 07:20 09/02/25 07:20 09/02/25 07:20 09/02/25 07:20
Physical Exam
Exam
GEN: No acute distress, conversant, pleasant
HEENT: anicteric, extraocular movements intact, clear oropharynx without exudates
GI: soft, obese non-distended, not tender to palpation, normal active bowel sounds, no hepatosplenomegaly
EXT: warm, well perfused, no edema bilaterally khyphosis
NEURO: AAOx3, non-focal
Results
WBC 10.1 10^3/uL (4.8-10.8) 09/01/25 10:55
Hgb 16.1 g/dL (12.0-16.0) H 09/01/25 10:55
Hct 49.4 % (37.0-47.0) H 09/01/25 10:55
MCV 89.0 fL (81.0-99.0) 09/01/25 10:55
Plt Count 261 10^3/uL (130-400) 09/01/25 10:55
Absolute Neuts (auto) 7.6 10^3/uL (1.4-6.5) H 09/01/25 10:55
PT 12.9 Sec (11.4-14.6) 09/01/25 10:55
INR 0.99 09/01/25 10:55
APTT 24.9 Sec (23.4-35.0) 09/01/25 10:55
Sodium 137 mmol/L (135-145) 09/01/25 10:55
Potassium 4.7 mmol/L (3.5-5.1) 09/01/25 10:55
Chloride 102 mmol/L (98-107) 12/04/25 10:55
Carbon Dioxide 31 mmol/L (22-30) H 09/01/25 10:55
BUN 18 mg/dl (7-17) H 09/01/25 10:55
Creatinine 0.8 mg/dL (0.6-1.0) 09/01/25 10:55
Calcium 9.3 mg/dl (8.4-10.2) 09/01/25 10:55
Total Bilirubin 0.5 mg/dl (0.2-1.3) 09/01/25 10:55
AST 22 U/L (14-36) 09/01/25 10:55
ALT 22 U/L (0-35) 09/01/25 10:55
Alkaline Phosphatase 87 U/L (38-126) 09/01/25 10:55
Lipase Cancelled 09/01/25 12:08
Diagnostic Image Results:
CTAP IV contrast: 09/01 large pancreatic head mass 7cm with SMV involvement, gallstones without biliary dilation
CT chest: small pulm nodule 0.6cm and 1.4cm granuloma in LLL
Prior GI Procedures:
01/[address] Nunez Zline bx neg for BE, neg for celiac or HP.
01/2022 EGD: Morton's 2cm in length, caren esophagitis, erythema of stomach.� Path records not available
09/2023 Colonoscopy: [facility] [place].� diverticulosis, spastic sigmoid, 3 polyps, 6mm in sigmoid removed the other 2 polyps 'undisturbed.'
09/2020 pH and impedeance manometry:� 48 events 34 acid, ? 3.6cm HH vs artifact.
Assessment / Plan
-
Yomaira is an 79yo W with a history of� HTN, anxiety and ENRIQUE on CPAP , GERD with Morton's esophagus who was advised to come to ER by PMD for abnormal abd US + Ashton's sign and abd pain. GI consulted for abnormal CTAP IV contrast showing 7cm
pancreatic head mass with SMV invasion. Gallstones without biliary dilation. CT chest with small pulm nodule
Impression
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
- Gallstones
- Abd pain
- Small pulm nodule
- Chronic GERD
- H/o Morton's esophagus
- Hiatal hernia
- HTN
- Anxiety
- ENRIQUE on CPAP
- IBS-D
Recommendations
- NPO now
- EUS/ERCP today with Dr Mosqueda
- Anticipate CLD post above
- Serial labs
- Abd pain improved
- C/w PPI IV daily basis
Above d/w hospitalist and surgery. updated bedside. Will follow with you
Data Reviewed
-
Radiology: Report Reviewed by me
CT Scan: Report Reviewed by me
Ultrasound: Report Reviewed by me
-
-
Thank you for consultation and allowing me to participate in the patient's care. Please call the infection control rn GI physician during the after hours with any questions or concerns.
--- NOTE | 2025-09-02 12:58 | W.PN.HOSP.TC ---
Today's Communication/Plan
-
monitor vital signs
see plan
Plan for EUS/ERCP today
N.p.o.
Continue metoprolol
Patient is now transferred to medicine service
Assessment / Plan
Assessment / Plan
General: Well Developed and Well Nourished
Respiratory: Non Labored Respirations
Cardiac: Regular Rhythm
GI: Soft, Non Distended, non tender
Neuro: Nonfocal/grossly intact
Psych: calm
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
CT noted with pancreatic mass
GI consulted, plan for EUS/ERCP today
Discussed with patient regarding CT results
Currently n.p.o.
PPI
History of hypertension
cw metoprolol
History of anxiety
History of Morton's esophagus
Chronic GERD
ENRIUQE on CPAP
History of IBS-D
History of cholelithiasis
obesity secondary excess calories
Monitor
hx of b/k TKA
DVT prophylaxis
lovenox
Full code
Anticipated Discharge: 24 - 48 hours
Subjective/Interval History
-
Date of Service: September 02, 2025
denies nausea
Objective Data
-
Vital Signs:
Vital Signs
Temp Pulse Resp BP Pulse Ox
97.7 F 70 18 145/72 94
09/02/25 11:31 09/02/25 11:31 09/02/25 11:31 09/02/25 11:31 09/02/25 11:31
I&O
09/01/25 09/02/25 09/03/25
06:59 06:59 06:59
Intake Total 450 / 450
Balance 450 / 450
--- NOTE | 2025-09-02 16:40 | W.PN.GS2 ---
Today's Communication / Plan
-
GI consult. Needs EUS/FNA
Assessment / Plan
-
This is an 80-year-old female with medical history of obesity, GERD, hypertension, SVT, ENRIQUE, bilateral TKA, , open appendectomy who presented with epigastric/right upper quadrant abdominal pain and discomfort over the past few months, worse
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
Her pancreatic mass is certainly concerning for malignancy however this is a very atypical presentation for adenocarcinoma, this could perhaps represent a serous cystic neoplasm (benign) which is more common in elderly women.
Recommend GI consult for possible EUS and biopsy.
CEA and CA 19-9
May need a referral for an [facility] surgeon depending on EUS findings.
No role for cholecystectomy at this time
General Surgery will follow peripherally
Time Spent
Total Time Spent with Patient (in minutes): 30
Subjective Data
-
Date of Service: September 02, 2025
Interval Events:
No acute events overnight. Slept okay, pain controlled. Hungry.
CT abdomen pelvis obtained yesterday evening demonstrated an unexpected very large pancreatic head mass without significant pancreatic or CBD dilation. Subsequent CT chest shows a pulmonary nodule which appears stable compared to previous imaging
studies per the patient. Of note there is no stigmata of cholecystitis on her CT abdomen pelvis.
Objective Data
-
Intake and Output
09/01/25 09/02/25 09/03/25
06:59 06:59 06:59
Intake Total 450 / 450
Balance 450 / 450
Intake:
IV fluids (Total) 350 / 350
IV piggybacks 100 / 100
Other:
Number of approximated MODERATE 4
amounts of urine
Vital Signs
Temp Pulse Resp BP Pulse Ox
98.1 F 69 18 138/81 95
09/02/25 15:22 09/02/25 15:22 09/02/25 15:22 09/02/25 15:22 09/02/25 15:22
Lab Results
09/01/25 10:55
09/01/25 10:55
Calcium 9.3 mg/dl (8.4-10.2) 09/01/25 10:55
Total Bilirubin 0.5 mg/dl (0.2-1.3) 09/01/25 10:55
AST 22 U/L (14-36) 09/01/25 10:55
ALT 22 U/L (0-35) 09/01/25 10:55
Alkaline Phosphatase 87 U/L (38-126) 09/01/25 10:55
Total Protein 7.1 g/dl (6.3-8.2) 09/01/25 10:55
Albumin 4.2 g/dl (3.5-5.0) 09/01/25 10:55
Physical Exam
-
GENERAL/NEURO: Awake, Alert, no distress
CHEST: Unlabored breathing on RA
ABDOMEN: Soft, Non-Tender, Non-Distended, obese
Patient has a mireles catheter: No
Patient has a central line: No
[2025-09-02] MEDS: TYLENOL PO (18:10)
[2025-09-02] MEDS: LOVENOX SC (18:17)
[2025-09-02] MEDS: BENTYL 10 MG PO (21:55)
--- NOTE | 2025-09-02 23:00 | PTCARENOTE ---
Patient reports cramping and gas in the lower abdomen. Says she takes Dicyclomine 10mg q 6hrs at home and is requesting a dose. [employer] placed one time order. Patient reported feeling much better upon follow up.
[2025-09-03] MEDS: TYLENOL 500 MG PO ×3 (00:20→11:43)
[2025-09-03] MEDS: ZOSYN 50 IV ×3 (00:20→11:44)
[2025-09-03 03:34] VITALS: BP 127/77
[2025-09-03] MEDS: NORMOSOL-R/PLASMALYTE-A 1000 IV (04:56)
[2025-09-03] MEDS: TYLENOL PO (04:58)
--- NOTE | 2025-09-03 05:18 | RESPNOTE ---
Patient refused Cpap
[2025-09-03 07:00] LABS: Hematocrit 42.5 % (37.0-47.0); Hemoglobin 14.1 g/dL (12.0-16.0); Mean Corp Hgb Conc. 33.2 g/dL (33.0-37.0); Mean Corpuscular Volume 86.7 fL (81.0-99.0); Nucleated Red Blood Cells % 0 %; Platelet Count 233 10^3/uL (130-400); Red Cell Dist. Width 13.8 % (11.5-14.5)
[2025-09-03] MEDS: TOPROL XL 50 MG PO (07:34)
[2025-09-03] MEDS: NSS (PRESERVATIVE FREE) 10 ML IV (07:35)
[2025-09-03] MEDS: PROTONIX IV 40 MG IV (07:35)
[2025-09-03 07:40] LABS: ALT (SGPT) 25 U/L (0-35); AST (SGOT) 26 U/L (14-36); Albumin 3.5 g/dl (3.5-5.0); Alkaline Phosphatase 75 U/L (38-126); Blood Urea Nitrogen 12 mg/dl (7-17); Calcium 8.4 mg/dl (8.4-10.2); Carbon Dioxide 29 mmol/L (22-30); Chloride 105 mmol/L (98-107); Estimated Creatinine Clearance 75 ml/min; Glucose 122 mg/dl (70-99); Potassium 4.1 mmol/L (3.5-5.1); Sodium 136 mmol/L (135-145); Total Protein 6.0 g/dl (6.3-8.2); eGFR > 60.00
[2025-09-03 07:47] VITALS: BP 140/76
[2025-09-03 11:21] VITALS: BP 121/65
--- NOTE | 2025-09-03 11:21 | W.PN.HOSP.TC ---
Today's Communication/Plan
-
monitor vitals
see plan
Discussed with GI, low-fat diet
Discharge today with cytology results pending with GI
Time of discharge 37 minutes
Assessment / Plan
Assessment / Plan
General: Well Developed and Well Nourished
Respiratory: Non Labored Respirations
Cardiac: Regular Rhythm
GI: Soft, Non Distended, non tender
Neuro: Nonfocal/grossly intact
Psych: calm
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
CT noted with pancreatic mass
GI following, status post EUS/FNA. Patient will follow-up with GI outpatient for biopsy results.
Discussed with patient regarding CT results
Discussed with GI, upgrade diet to low-fat. Patient for discharge today
PPI
History of hypertension
cw metoprolol
History of anxiety
History of Morton's esophagus
Chronic GERD
ENRIQUE on CPAP
History of IBS-D
History of cholelithiasis
obesity secondary excess calories
Monitor
hx of b/k TKA
DVT prophylaxis
lovenox
Full code
Anticipated Discharge: Today
Subjective/Interval History
-
Date of Service: September 03, 2025
denies pain
Objective Data
-
Labs:
Laboratory Results
09/03/25
06:18
WBC 7.8
Hgb 14.1
Hct 42.5
Plt Count 233
Sodium 136
Potassium 4.1
Chloride 105
Carbon Dioxide 29
BUN 12
Creatinine 0.7
Glucose 122 H
Calcium 8.4
Total Bilirubin 0.8
AST 26
ALT 25
Alkaline Phosphatase 75
Vital Signs:
Vital Signs
Temp Pulse Resp BP Pulse Ox
98.1 F 74 18 140/76 96
09/03/25 07:47 09/03/25 07:47 09/03/25 07:47 09/03/25 07:47 09/03/25 07:47
I&O
09/02/25 09/03/25 09/04/25
06:59 06:59 06:59
Intake Total 1600 / 1600
Balance 1600 / 1600
--- NOTE | 2025-09-03 11:35 | W.DCSUMMARY ---
Discharge Summary
Discharge Data
Date of Admission: 09/01/25
Date of Discharge: 09/03/25
-
Pending Results: Yes
Hospital Course
80-year-old female with past medical history of anxiety, hypertension, Morton's esophagus, GERD, ENRIQUE on CPAP, IBS, cholelithiasis, obesity came to the hospital with abdominal pain which was initially thought was secondary to acute cholecystitis.
CT scan was done which showed pancreatic head mass. GI was then consulted who did an EUS/FNA. Patient cytology results were still pending prior to discharge. GI recommended patient to follow-up with them closely outpatient for further management.
Patient was able to tolerate low-fat diet prior to discharge. Once her symptoms continue to improve, she was then discharged home with instructions to follow-up with all her other physicians outpatient.
Discharge Plan
-
Patient Disposition: Home (Routine Discharge)
Discharge Diagnosis/Procedures: Pancreatic head mass status post EUS with FNA
Condition: Fair
Diet: Low Fat
Activity: As tolerated
Driving Restrictions: As prior to admission
Bathing Restrictions: None
Activity Restrictions/Additional Instructions:
Please follow-up for cytology results with GI
Referrals:
Sherlyn Mehta MD [Active, Gastroenterology] - in two weeks
Chris Mosqueda MD [Active, Gastroenterology]
James Phillips MD [Family Provider, Internal Medicine] - in less than 1 week
Prescriptions:
Continued
omeprazole 20 mg Capsule,Delayed Release(Dr/Ec)
20 mg PO DAILY
fluoxetine [Prozac] 20 mg Capsule
20 mg PO DAILY
cholecalciferol (vitamin D3) [Vitamin D3] 50 mcg (2,000 unit) Tablet
50 mcg PO DAILY
potassium chloride 8 mEq Tablet Extended Release
8 meq PO DAILY
furosemide 20 mg Tablet
20 mg PO DAILY
metoprolol succinate [Toprol XL] 50 mg Tablet Extended Release 24 Hr
50 mg PO BID
ofloxacin 0.3 % Drops
4 drp OTIC (EAR) BID
carboxymethylcellulose sodium [Refresh Tears] 0.5 % Drops
1 drp BOTH EYES TIDPRN PRN (Reason: dryness)
metaxalone 800 mg Tablet
800 mg PO HSPRN PRN (Reason: spasms)
d-mannose 500 mg Capsule
1,000 mg PO DAILY
Discharge Orders:
Discharge Patient (As Directed); Ordered 09/03/25
Ordered By: Barrett Biggs
Discharge Date and Time
Discharge Date/Time: 09/03/25 14:21
Print Language: FAROESE
--- NOTE | 2025-09-03 12:15 | CM ---
Patient seen at bedside with patient and . Patient states that she lives in a one story home with her . Patient PCP is Dr. Jean and she uses the [place] [facility] or [facility] in [place]. Patient now asking that pharmacy needs be sent to
[place]. Patient is planning to transport patient home. Patient SDC no IMM needed. CM will continue to follow for discharge planning needs.
Plan; home with , no VN needs at this time.
== END 2025-09-03 14:21 | disposition home or self-care (01) ==
LOC: SDS 18:10
PROVIDERS: Registered Nurse; ATTENDING PHYSICIAN Internal Medicine; CONSULT PHYSICIAN Internal Medicine Gastroenterology; EMERGENCY PHYSICIAN Student in an Organized Health Care Education/Training Program; FAMILY PHYSICIAN Internal Medicine Geriatric Medicine
DX: K86.89 Other specified diseases of pancreas (principal); R93.5 Abnormal findings on diagnostic imaging of other abdominal regions, including retroperitoneum; K80.20 Calculus of gallbladder without cholecystitis without obstruction; R93.2 Abnormal findings on diagnostic imaging of liver and biliary tract; R10.84 Generalized abdominal pain
CPT/HCPCS: 43242; 71260; 74177; 80053; 82378; 82962; 83690; 85025; 85610; 85730; 86301; 86850; 86900; 86901; 88173; 88305; 93005; 94660; 96365; 96375; 99285; Q9967